=== PATIENT | male | born 1960 | race Caucasian/White ===

== ENCOUNTER 2023-12-07 05:20 | Emergency (ER) | payer OTHER, SELFPAY ==
[2023-12-07 05:23] VITALS: BP 210/111
[2023-12-07 05:53] VITALS: BMI 37.3
[2023-12-07 05:58] LABS: % Basophils 0.3 % (0-2); % Eosinophils 1.4 % (0-6); % Immature Granulocytes 0.5 % (0-0.5); % Lymphocytes 14.4 % (20.5-51.1); % Monocytes 5.3 % (1.7-9.3); % Neutrophils 78.1 % (42.2-75.2); Absolute Eosinophils 0.2 10^3/uL (0-0.7); Absolute Immature Granulocytes 0.1 10^3/uL (0-0.05); Absolute Lymphocytes 1.8 10^3/uL (1.2-3.4); Absolute Monocytes 0.7 10^3/uL (0.1-0.6); Absolute Neutrophils 9.7 10^3/uL (1.4-6.5); Hematocrit 42.8 % (39.0-52.0); Hemoglobin 15.7 g/dL (13.0-18.0); Mean Corp Hgb Conc. 36.7 g/dL (33.0-37.0); Mean Corpuscular Hgb 30.2 pg (27.0-31.0); Mean Corpuscular Volume 82.3 fL (80.0-94.0); Mean Platelet Volume 9.1 fL (7.4-10.4); Nucleated Red Blood Cells % 0 % (-); Platelet Count 289 10^3/uL (130-400); White Blood Cell Count 12.4 10^3/uL (4.8-10.8)
[2023-12-07] MEDS: ZOFRAN 4 MG IV (06:04)
[2023-12-07] MEDS: TORADOL 15 MG IV (06:04)
--- NOTE | 2023-12-07 06:06 | ED.GENMED ---
History of Present Illness
General
Chief Complaint: Flank Pain
Source: patient
Exam Limitations: none
Time Seen by Provider: 12/07/23 05:59
Nursing documentation reviewed up to this point in time: agreed with
Travel History
Have you had any contact with someone who has COVID-19?: No
Do you have any symptoms of coronavirus? Fever > 100 degrees, chills, cough, shortness of breath, sore throat, loss of taste or smell, muscle aches, or headache?: No
History of Present Illness
History of Present Illness:
63-year-old male presents emergency department complaining of left flank pain that began 2 to 3 hours ago. It came on suddenly. He also complains of nausea and vomiting.
Past History
Past History
ED Past Medical History: HTN
ED Past Surgical History: Orthopedic (Right foot surgery)
Social History
Tobacco: Non-smoker
Alcohol: None
Drug: None
Personal:
Living: with family
Employment: Employed
Review of Systems
Review of Systems
Allergies reviewed?: Yes
All Other Systems: Not applicable
Constitutional: Reports no symptoms
EENT: Reports no symptoms
Respiratory: Reports no symptoms
Cardiac: Reports no symptoms
ABD/GI: Reports nausea and vomiting
: Reports flank pain
Musculoskeletal: Reports no symptoms
Skin: Reports no symptoms
Neurological: Reports no symptoms
Endocrine: Reports no symptoms
Hematologic/Lymphatic: Reports no symptoms
Psychiatric: Reports no symptoms
Phy Exam
Physical Exam
Physical Exam:
Physical Exam
General: Afebrile, appears uncomfortable, hypertensive
Neck: supple. no meningeal signs. normal posterior pharynx
Heart: s1/s2 regular rate and rhythm, no murmur. equal radial
pulses.
HEENT: Pupils equal round reactive to light, EOMI
Lungs: no acute respiratory distress. clear bilaterally
Abdomen: normal bowel sounds. not tender. no CVAT
Neuro: alert and oriented. no focal neurological deficits cranial nerves II through XII intact
Skin: no rash
Psychiatric: well kept. interactive and cooperative
Extremities: no edema. no calf tenderness. negative homans. good distal pulses
Course
Orders/Labs/Results
Orders:
Orders
12/07/23 05:46
Complete Blood Count/With Diff Urgent
Comprehensive Metabolic Panel Urgent
Urinalysis Reflex To Culture Urgent
Date Specimen was Collected: 12/07/23
Time Specimen was Collected: 05:34
Urine Microscopic Reflex Cult Urgent
12/07/23 06:00
Ketorolac [Toradol] 15 mg IV NOW STA
12/07/23 06:01
Ondansetron Injectable [Zofran] 4 mg IV NOW STA
12/07/23 06:06
CT Abd/pel Without Iv Or Oral Urgent
Comment:
Reason For Exam: left flank pain 2 hours
Abnormal Lab Results
12/07/23
05:46
WBC 12.4 H 10^3/uL
(4.8-10.8)
Abs Immat Gran (auto) 0.1 H 10^3/uL
(0-0.05)
Absolute Neuts (auto) 9.7 H 10^3/uL
(1.4-6.5)
Absolute Monos (auto) 0.7 H 10^3/uL
(0.1-0.6)
Neutrophils % 78.1 H %
(42.2-75.2)
Lymphocytes % 14.4 L %
(20.5-51.1)
Sodium 134 L mmol/L
(135-145)
Glucose 250 H mg/dl
(70-99)
Urine Ketones 1+ A
(Negative)
Ur Occult Blood Reflex 1+ A
(Negative)
Urine RBC 7-10 A /HPF
(0-2)
Urine Bacteria (Reflex) Few A
(Negative)
Urine Glucose 3+ A
(Negative)
12/07/23 05:46
12/07/23 05:46
Vital Signs
Initial and Last Documented VS:
Initial Vital Signs
Temp Pulse Resp BP Pulse Ox
97.9 F 60 24 210/111 100
12/07/23 05:23 12/07/23 05:23 12/07/23 05:23 12/07/23 05:23 12/07/23 05:23
Last Documented Vital Signs
Temp Pulse Resp BP Pulse Ox
97.9 F 86 16 143/81 94
12/07/23 05:23 12/07/23 07:12 12/07/23 07:12 12/07/23 07:12 12/07/23 07:12
MDM/Problems Addressed
Differential Diagnosis Includes:
Ureteral calculus, pyelonephritis, diverticulitis
MDM/Problems Addressed:
61-year-old male with left ureteral calculus now passed into bladder. Pain relieved. No signs of UTI. Stable for discharge. Patient will follow-up with primary care for pulmonary nodules and hepatic steatosis. Blood sugar elevated, will also
follow-up with primary care.
Chronic conditions affecting care: HTN
Acute Exacerbation and/or Progression of Chronic Illness: HTN
*Radiology
Radiology exam reviewed: radiology read reviewed (CT abdomen pelvis shows ureteral calculus and bladder, 2 mm with residual left hydroureteronephrosis.)
*Pulse Oximetry
Patient hypoxic: no
*EKG
Interpreted by ED Provider?: NA
*Finished Hardware Erector Interpretation
Rate: Finished Hardware Erector- N/A
*Critical Care Note
Total Time (30-74mins, 75-104mins- exclusive of procedures): Not Applicable
Patient Management
Social determinants of health affecting care: Living situation and Strong social support
Escalation/DeEscalation of care consider admission/obs:
Admit not indicated
ED Attending Note
-
Portions of this chart may have been created with voice recognition software.� Occasional wrong word or��sound alike� substitutions may have occurred due to the inherent limitations of voice recognition software.
Discharge Plan
Departure
Patient Disposition: Home (Routine Discharge)
Date of Disposition: 12/07/23
Time of Disposition: 08:27
Patient with high blood pressure during this ER visit?: Yes
Condition: Good
Discharge Problem:
Calculus of distal left ureter, Hyperglycemia, Multiple pulmonary nodules
Instructions: Kidney Stones (DC), Multiple pulmonary nodules, How to Strain Your Urine, High Blood Sugar, Adult ED, BLOOD PRESSURE
Prescriptions:
No Action
lisinopril-hydrochlorothiazide 20-25 mg Tablet
1 tab PO DAILY
omeprazole 20 mg Tablet,Disintegrat, Delay Rel
20 mg PO DAILY
Amloddipine Besylate
10 mg fish oil PO DAILY
Referrals:
Remy Terrazas MD [Family Provider] - Call in 1-3 days for appt
Activity Restrictions/Additional Instructions:
Pulmonary nodules were seen on both lower lungs. You primary care physicians needs to order a chest CT examination in 3-6 months to follow up on these. You also have a fatty liver, that your primary care doctor will need to follow up on.
Interventions
Interventions:
*Risk Screen - Suicide Last Done: 12/07/23 05:23
*Neglect/Abuse Screening Last Done: 12/07/23 05:23
ED- Fall Risk Assessment Last Done: 12/07/23 05:47
NL-Yqpubb-Rtpxrpzsrx Assessment Last Done: 12/07/23 05:47
ED-Male Genitourinary Assessment Last Done: 12/07/23 05:47
[2023-12-07 06:20] LABS: ALT (SGPT) 27 U/L (0-50); AST (SGOT) 20 U/L (17-59); Albumin 4.2 g/dl (3.5-5.0); Alkaline Phosphatase 93 U/L (38-126); Blood Urea Nitrogen 14 mg/dl (9-20); Calcium 9.1 mg/dl (8.4-10.2); Chloride 101 mmol/L (98-107); Estimated Creatinine Clearance > 125 ml/min; Glucose 250 mg/dl (70-99); Sodium 134 mmol/L (135-145); Total Bilirubin 0.9 mg/dl (0.2-1.3); Total Protein 6.9 g/dl (6.3-8.2); eGFR > 60.00
[2023-12-07 06:30] LABS: Carbon Dioxide 25 mmol/L (22-30)
[2023-12-07 06:55] VITALS: BP 154/94
[2023-12-07 07:12] VITALS: BP 143/81
[2023-12-07 07:46] LABS: Urine Albumin Negative (Neg - Trace); Urine Bilirubin Negative (Negative); Urine Character Clear (Clear); Urine Color Yellow; Urine Glucose 3+ (Negative); Urine Ketone 1+ (Negative); Urine Leukocyte Negative (Negative); Urine Nitrite Negative (Negative); Urine Occult Blood 1+ (Negative); Urine Urobilinogen Negative (Neg - 1+)
[2023-12-07 08:14] LABS: Urine Squamous Cell 0-2 /LPF (Few)
[2023-12-07 08:15] LABS: Urine Mucus Few
[2023-12-07 08:17] LABS: Urine Bacteria Few (Negative); Urine White Cell 0-2 /HPF (0-5)
--- NOTE | 2023-12-27 13:47 | OID.L.PAT ---
Pulmonary Nodule Pat Letter
- -
12/27/23
ELHAM GRADY
[address] [place] [address]
[place], [place]
Deaday LIZARRAGA,
A pulmonary nodule was seen on an imaging study done by [facility]. This was reviewed by the [facility] Pulmonary Nodule Advisory Board and the following recommendation was made:
Recommendation: Follow up CT Chest in 3 - 6 months
If you have any questions, please do not hesitate to contact your primary care physician. If you are in need of a Physician, you can go to [email or web address] and click on 'Find a Provider'. Type 'Family Medicine' in the search.
Oncology Nurse Navigator
[facility]
[phone]
--- NOTE | 2023-12-27 13:48 | OID.L.REC ---
Pulmonary Nodule Follow Up
- Recommendation
12/27/23
Pulmonary Nodule Review Recommendations
Your patient, ELHAM GRADY, had a pulmonary nodule seen on an imaging study done on 12/07/23 in the [facility] Emergency Room.
This was reviewed by the [facility] Pulmonary Nodule Advisory Board and the following recommendation was made:
Recommendation: Follow up CT Chest in 3 - 6 months
If you have any questions please do not hesitate to contact us.
Sincerely,
Oncology Nurse Navigator
[facility]
[phone]
== END 2023-12-07 08:44 | disposition home or self-care (01) ==
LOC: EMR 05:20
PROVIDERS: Emergency Medicine; EMERGENCY PHYSICIAN Emergency Medicine; FAMILY PHYSICIAN Family Medicine
DX: N21.0 Calculus in bladder (principal); N13.30 Unspecified hydronephrosis; I10 Essential (primary) hypertension; R91.8 Other nonspecific abnormal finding of lung field; K76.0 Fatty (change of) liver, not elsewhere classified; K21.9 Gastro-esophageal reflux disease without esophagitis
CPT/HCPCS: 99284; 96374; 96375; 74176; 80053; 81003; 81015; 85025

== ENCOUNTER → 2025-06-19 07:56 | Outpatient (REF) | payer OTHER, SELFPAY | LOC: HWRAD 07:56 | PROVIDERS: ATTENDING PHYSICIAN Nurse Practitioner Family | DX: Z87.891 Personal history of nicotine dependence (principal); R91.1 Solitary pulmonary nodule | CPT/HCPCS: 71271 ==